=== PATIENT | male | born 1995 | race Caucasian/White ===

== ENCOUNTER 2018-09-28 00:16 | Inpatient (IN) | payer MEDICAID, OTHER ==
[2018-09-28] MEDS ORDERED: ZIPRASIDONE 20 MG VIAL IM PRN (15:12)
[2018-09-28] MEDS ORDERED: MAGNESIUM HYDROXIDE 2,400 MG/10 ML CUP PO PRN (15:12)
[2018-09-28] MEDS ORDERED: MAG HYDROX/AL HYDROX/SIMETH 30 ML CUP PO PRN (15:12)
[2018-09-28] MEDS ORDERED: LORazepam 1 MG TAB PO PRN (15:12)
[2018-09-28] MEDS ORDERED: ACETAMINOPHEN TAB 325 MG TAB PO PRN (15:12)
[2018-09-28] MEDS: diphenhydrAMINE 50 MG CAP PO SCH ×2 (16:00→21:32)
[2018-09-28] MEDS: HALOPERIDOL 5 MG TAB PO SCH ×2 (16:01→21:32)
--- NOTE | 2018-09-28 16:14 | P.MDCNMH ---
History of Present Illness H&P Date: 09/28/18 Chief Complaint: Medical management 23-year-old male with PMH of schizophrenia presents to the ED being brought in by [employer] officer. Patient was recently discharged from [facility] on 09/25/2018. Patient currently has no complaints. Patient requesting when he can be discharged. Patient denies any headaches, lower extremity edema, nausea, vomiting, fever, cough, chest pain, shortness of breath, palpitations, changes in urination or bowel habits. No changes in appetite or weight. He denies numbness, weakness of tingling of the extremities. Review of Systems All systems: negative Past Medical History Past Medical History: No Reported History History of Any Multi-Drug Resistant Organisms: None Reported Past Surgical History: No Surgical Hx Reported Smoking Status: Current every day smoker Medications and Allergies Home Medications Medication Instructions Recorded Confirmed Type Haloperidol Decanoate [Haldol D] 150 mg IM Q21D 09/28/18 09/28/18 History Haloperidol [Haldol] 10 mg PO TID 09/28/18 09/28/18 History OLANZapine [ZyPREXA] 20 mg PO HS 09/28/18 09/28/18 History diphenhydrAMINE [Benadryl] 50 mg PO TID 09/28/18 09/28/18 History Allergies Allergy/AdvReac Type Severity Reaction Status Date / Time peanut Allergy Unknown Verified 09/28/18 13:39 Physical Exam Vitals: Vital Signs Temp Pulse Pulse Resp BP BP Pulse Ox 09/28/18 15:21 97.4 F L 100 20 119/86 09/28/18 14:00 97.9 F 82 18 124/72 98 09/28/18 00:26 97.9 F 89 18 129/83 100 Intake and Output 09/28/18 09/28/18 09/28/18 06:59 14:59 22:59 Other: Weight 56.699 kg General: [non toxic], [no distress], [appears at stated age] Derm: [warm], [dry] Head: [atraumatic], [normocephalic], [symmetric] Eyes: [EOMI], [no lid lag], [anicteric sclera] Mouth: [no lip lesion], [mucus membranes moist] Cardiovascular: [S1S2 reg], [tachycardia], [positive DP pulse bilateral] Lungs: [CTA bilateral], [no rhonchi, no rales] , [no accessory muscle use] Abdominal: [soft], [ nontender to palpation], [no guarding], [no appreciable organomegaly] Ext: [no gross muscle atrophy], [no edema], [no contractures] Neuro: [no focal neuro deficits] Psych: [Alert], [oriented], [appropriate affect] Cranial Nerve Examination - Cranial Nerves Cranial Nerve II- Optic: Intact Cranial Nerve III- Oculomotor: Intact Cranial Nerve IV- Trochlear: Intact Cranial Nerve V- Trigeminal: Intact Cranial Nerve - Abducens: Intact Cranial Nerve VII- Facial: Intact Cranial Nerve VIII- Auditory: Intact Cranial Nerve IX- Glossopharyngeal: Intact Cranial Nerve X- Vagus: Intact Cranial Nerve XI- Accessory: Intact Cranial Nerve XII- Hypoglossal: Intact Assessment and Plan Assessment: Assessment and Plan 1. Tachycardia 2. Schizophrenia 1. Heart rate around 100. Unknown etiology. Will follow EKG results. Follow CBC and BMP results. 2. Management as per psychiatry. Follow TSH results. Thank you for the consult. Please call with any additional questions.
[2018-09-28] MEDS: OLANZapine 10 MG TAB PO SCH (21:31)
[2018-09-29] MEDS: HALOPERIDOL 5 MG TAB PO SCH ×3 (09:29→20:31)
[2018-09-29] MEDS: diphenhydrAMINE 50 MG CAP PO SCH ×3 (09:33→20:31)
--- NOTE | 2018-09-29 16:43 | P.HP ---
Psychiatric H&P - . H&P Date: 09/29/18 History & Physical: Allergies Allergy/AdvReac Type Severity Reaction Status Date / Time peanut Allergy Unknown Verified 09/28/18 13:39 Vital Signs Temp 97.6 F 09/29/18 06:15 Pulse 84 09/29/18 06:15 Resp 12 09/29/18 06:15 BP 118/59 09/29/18 06:15 Pulse Ox 98 09/28/18 14:00 Intake & Output 09/28/18 09/29/18 09/29/18 18:59 06:59 18:59 Weight 56.699 kg 09/29/18 16:38 Chief Complaint : Worsening agitation and aggressive behavior HPI: Mr. Vince uriarte is 23 yo single male with h/o Mood Disorder and psychoses admitted here secondary to worsening behaviors, Reportedly he had a fights with his mother and he was verbally and physically aggressive. Reportedly he has been off his medications for quite some time. Past Psych Hx: Schizophrenia, developmentally delayed Family Hx : Unknown Social Hx : Lives with his biological mother and sister. Reports smoking cigarets a pack a a day. MSE : Alert, awake, interactive. Poor eye contact. Speech few words. Mood dysphoric and anxious. Has no auditory and no visual hallucinations. Has no suicidal ideation. Insight and judgment impaired. A/P : Schizoaffective Disorder, depressed type Will resume and adjust medications accordingly
[2018-09-29] MEDS: OLANZapine 10 MG TAB PO SCH (20:31)
[2018-09-30] MEDS: diphenhydrAMINE 50 MG CAP PO SCH ×3 (08:12→21:55)
[2018-09-30] MEDS: HALOPERIDOL 5 MG TAB PO SCH ×3 (08:12→21:57)
--- NOTE | 2018-09-30 12:42 | P.PN ---
Subjective Progress Note Date: 09/30/18 Principal diagnosis: Schizoaffective Disorder Found him still anxious and upset. He wants to go home. Did sleep better last night. Behaviorally well controlled. MSE : Alert, awake, interactive. Poor eye contact. Speech few words. Mood dysphoric and anxious. Has no auditory and no visual hallucinations. Has no suicidal ideation. Insight and judgment impaired. A/P : Schizoaffective Disorder, depressed type Will adjust medications accordingly Objective - Vital Signs Vital signs: Vital Signs Temp 97.7 F 09/30/18 06:33 Pulse 83 09/30/18 06:33 Resp 16 09/30/18 06:33 BP 116/70 09/30/18 06:33 Pulse Ox 98 09/28/18 14:00 Intake & Output 09/29/18 09/30/18 09/30/18 18:59 06:59 18:59 Weight 56.699 kg
[2018-09-30] MEDS: OLANZapine 10 MG TAB PO SCH (21:55)
[2018-10-01] MEDS: HALOPERIDOL 5 MG TAB PO SCH ×3 (07:38→21:35)
[2018-10-01] MEDS: diphenhydrAMINE 50 MG CAP PO SCH ×3 (07:39→21:35)
[2018-10-01 09:35] LABS: Basophils % (A) 1 %; Eosinophils # (A) 0.2 k/uL (0-0.7); Eosinophils % (A) 4 %; HCT 42.6 % (39.0-53.0); HGB 14.4 gm/dL (13.0-17.5); Lymphocytes % (A) 19 %; MCH 30.9 pg (25.0-35.0); MCHC 33.8 g/dL (31.0-37.0); MCV 91.4 fL (80.0-100.0); Mean Platelet Volume 7.1; Monocytes # (A) 0.3 k/uL (0-1.0); Monocytes % (A) 6 %; Neutrophils # (A) 3.7 k/uL (1.3-7.7); Neutrophils % (A) 70 %; Platelet Count 214 k/uL (150-450); RBC 4.66 m/uL (4.30-5.90); WBC 5.3 k/uL (3.8-10.6)
[2018-10-01 09:53] LABS: ALT 87 U/L (21-72); AST 39 U/L (17-59); Albumin 4.5 g/dL (3.5-5.0); Alkaline Phosphatase 85 U/L (38-126); Anion Gap 11 mmol/L; Blood Urea Nitrogen 20 mg/dL (9-20); Calcium 9.8 mg/dL (8.4-10.2); Carbon Dioxide 23 mmol/L (22-30); Chloride 108 mmol/L (98-107); Cholesterol 152 mg/dL (<200); Glucose 85 mg/dL (74-99); HDL Cholesterol 37 mg/dL (40-60); LDL Cholesterol,Calculated 79 mg/dL (0-99); Potassium 4.8 mmol/L (3.5-5.1); Sodium 142 mmol/L (137-145); Total Bilirubin 0.4 mg/dL (0.2-1.3); Total Protein 7.8 g/dL (6.3-8.2); Triglycerides 181 mg/dL (<150)
--- NOTE | 2018-10-01 12:33 | P.PN ---
Subjective Progress Note Date: 10/01/18 Principal diagnosis: Schizoaffective Disorder, depressed type 10/01/2018: Vince was seen at bedside and he usually was awoken. He states he has troubles with medications because gives some ALLERGIES. He does not specifically say what adverse consequences of using Prolixin. He is taking his medications as indicated. Objective - Vital Signs Vital signs: Vital Signs Temp 97.7 F 09/30/18 06:33 Pulse 83 09/30/18 06:33 Resp 16 09/30/18 06:33 BP 116/70 09/30/18 06:33 Pulse Ox 98 09/28/18 14:00 Intake & Output 09/30/18 10/01/18 10/01/18 18:59 06:59 18:59 Weight 60.7 kg - Labs CBC & Chem 7: 10/01/18 09:22 10/01/18 09:22 Labs: Abnormal Lab Results - Last 24 Hours (Table) 10/01/18 Range/Units 09:22 Chloride 108 H (98-107) mmol/L ALT 87 H (21-72) U/L Triglycerides 181 H (<150) mg/dL HDL Cholesterol 37 L (40-60) mg/dL Assessment and Plan Assessment: Mental Status Examination - General Appearance: [disheveled, bizarre, appears stated age Speech/Language: [ slow, rambled, soft] Attitude/Behavior: [ guarded, withdrawn, indifferent] Mood: [euthymic,anxious, irritable, angry, Affect: [ lively, incongruent, labile, Orientation: [Not time time, person, place situation] Thought Content: [wnl Risk Factors: [Denies suicidal (ideations, plan), and/or Homicidal (ideations, plan), other] Perception: [wnl, denies hallucinations (auditory, visual, tactile), other] Thought Processes: [ concrete Concentration/Attention Span: [impaired] [Per observation and interview with the patient] Recent Memory: [ impaired] [0out of 3 in 3 minutes] Remote Memory: [wnl] [past events, as related history] Intelligence: [below average] [based on history, based on vocabulary, syntax, grammar, and content] Judgement: [ fair [per patient's behavior/history of present illness] Insight: [ fair] [understanding severity of illness/history of present illness] Psychiatric impression: Schizoaffective disorder bipolar type Plan: Discontinue Zyprexa at nighttime continue Haldol 10 mg 3 times a day plus injection of Haldol decanoate on 10/12/2018 150 mg as planned. Will add a mood stabilizer Depakote 250 mg at bedtime to treat his mood instability. (1) Schizoaffective disorder, bipolar type Current Visit: Yes Status: Acute Code(s): F25.0 - SCHIZOAFFECTIVE DISORDER, BIPOLAR TYPE SNOMED Code(s): 64147818 Time with Patient: Less than 30
[2018-10-01 20:33] LABS: Hemoglobin A1C 4.6 % (4.0-6.0)
[2018-10-01] MEDS: DIVALPROEX ER 250 MG TAB.ER.24H PO SCH (21:35)
[2018-10-02] MEDS: diphenhydrAMINE 50 MG CAP PO SCH ×3 (08:55→20:37)
[2018-10-02] MEDS: HALOPERIDOL 5 MG TAB PO SCH ×3 (08:55→20:37)
[2018-10-02] MEDS: DIVALPROEX ER 250 MG TAB.ER.24H PO SCH (20:37)
[2018-10-03] MEDS: HALOPERIDOL 5 MG TAB PO SCH ×3 (09:00→20:02)
[2018-10-03] MEDS: diphenhydrAMINE 50 MG CAP PO SCH ×3 (09:01→20:03)
--- NOTE | 2018-10-03 13:04 | P.PN ---
Subjective Progress Note Date: 10/03/18 Principal diagnosis: Schizoaffective Disorder, depressed type 10/01/2018: Vince was seen at bedside and he usually was awoken. He states he has troubles with medications because gives some ALLERGIES. He does not specifically say what adverse consequences of using Prolixin. He is taking his medications as indicated. 10/03/2018: Vince seen walking in the hallway and explained to him his medications as walks back to my office. He is taking his medications as indicated with a great deal of encouragement. He still has odd behavior and minimally interacts in group. Objective - Vital Signs Vital signs: Vital Signs Temp 98.0 F 10/03/18 06:52 Pulse 97 10/03/18 06:52 Resp 16 10/03/18 06:52 BP 118/71 10/03/18 06:52 Pulse Ox 70 L 10/03/18 06:52 - Labs CBC & Chem 7: 10/01/18 09:22 10/01/18 09:22 Assessment and Plan Assessment: Mental Status Examination - General Appearance: [disheveled, bizarre, appears stated age Speech/Language: [ slow, rambled, soft] Attitude/Behavior: [ guarded, withdrawn, indifferent] Mood: [euthymic,anxious, irritable, angry, Affect: [ lively, incongruent, labile, Orientation: [Not time time, person, place situation] Thought Content: [wnl Risk Factors: [Denies suicidal (ideations, plan), and/or Homicidal (ideations, plan), other] Perception: [wnl, denies hallucinations (auditory, visual, tactile), other] Thought Processes: [ concrete Concentration/Attention Span: [impaired] [Per observation and interview with the patient] Recent Memory: [ impaired] [0out of 3 in 3 minutes] Remote Memory: [wnl] [past events, as related history] Intelligence: [below average] [based on history, based on vocabulary, syntax, grammar, and content] Judgement: [ fair [per patient's behavior/history of present illness] Insight: [ fair] [understanding severity of illness/history of present illness] Psychiatric impression: Schizoaffective disorder bipolar type Plan: Discontinue Zyprexa at nighttime continue Haldol 10 mg 3 times a day plus injection of Haldol decanoate on 10/12/2018 150 mg as planned. Will add a mood stabilizer Depakote 250 mg at bedtime to treat his mood instability. 10/03/2018: Will evaluate Depakote blood level. Discontinue Zyprexa at bedtime. Continue the Haldol 10 mg 3 times a day. Consideration of the increase of haloperidol his Haldol decanoate will be given at the time of discharge. (1) Schizoaffective disorder, bipolar type Current Visit: Yes Status: Acute Code(s): F25.0 - SCHIZOAFFECTIVE DISORDER, BIPOLAR TYPE SNOMED Code(s): 37362488 Time with Patient: Less than 30
--- NOTE | 2018-10-03 13:05 | P.PN ---
Subjective Progress Note Date: 10/02/18 Principal diagnosis: Schizoaffective Disorder, depressed type 10/01/2018: Vince was seen at bedside and he usually was awoken. He states he has troubles with medications because gives some ALLERGIES. He does not specifically say what adverse consequences of using Prolixin. He is taking his medications as indicated. 10/02/2018: Discussed in detail with Vince regarding his hearing with [facility] and his discharge plans thereafter. He was encouraged to take his medications daily otherwise he will not leave the unit. 10/03/2018: Vince seen walking in the hallway and explained to him his medications as walks back to my office. He is taking his medications as indicated with a great deal of encouragement. He still has odd behavior and minimally interacts in group. Objective - Vital Signs Vital signs: Vital Signs Temp 98.0 F 10/03/18 06:52 Pulse 97 10/03/18 06:52 Resp 16 10/03/18 06:52 BP 118/71 10/03/18 06:52 Pulse Ox 70 L 10/03/18 06:52 - Labs CBC & Chem 7: 10/01/18 09:22 10/01/18 09:22 Assessment and Plan Assessment: Mental Status Examination - General Appearance: [disheveled, bizarre, appears stated age Speech/Language: [ slow, rambled, soft] Attitude/Behavior: [ guarded, withdrawn, indifferent] Mood: [euthymic,anxious, irritable, angry, Affect: [ lively, incongruent, labile, Orientation: [Not time time, person, place situation] Thought Content: [wnl Risk Factors: [Denies suicidal (ideations, plan), and/or Homicidal (ideations, plan), other] Perception: [wnl, denies hallucinations (auditory, visual, tactile), other] Thought Processes: [ concrete Concentration/Attention Span: [impaired] [Per observation and interview with the patient] Recent Memory: [ impaired] [0out of 3 in 3 minutes] Remote Memory: [wnl] [past events, as related history] Intelligence: [below average] [based on history, based on vocabulary, syntax, grammar, and content] Judgement: [ fair [per patient's behavior/history of present illness] Insight: [ fair] [understanding severity of illness/history of present illness] Psychiatric impression: Schizoaffective disorder bipolar type Plan: Discontinue Zyprexa at nighttime continue Haldol 10 mg 3 times a day plus injection of Haldol decanoate on 10/12/2018 150 mg as planned. Will add a mood stabilizer Depakote 250 mg at bedtime to treat his mood instability. 10/02/2018: Continued on behavior and isolation. Will check 15 minutes on a safety and encourage him to be in [facility] therapeutic environment. 10/03/2018: Will evaluate Depakote blood level. Discontinue Zyprexa at bedtime. Continue the Haldol 10 mg 3 times a day. Consideration of the increase of haloperidol his Haldol decanoate will be given at the time of discharge. (1) Schizoaffective disorder, bipolar type Current Visit: Yes Status: Acute Code(s): F25.0 - SCHIZOAFFECTIVE DISORDER, BIPOLAR TYPE SNOMED Code(s): 44283166 Time with Patient: Less than 30
[2018-10-03] MEDS: DIVALPROEX ER 250 MG TAB.ER.24H PO SCH (20:03)
[2018-10-04] MEDS: diphenhydrAMINE 50 MG CAP PO SCH ×3 (08:16→21:21)
[2018-10-04] MEDS: HALOPERIDOL 5 MG TAB PO SCH ×3 (08:16→21:21)
--- NOTE | 2018-10-04 13:41 | P.PN ---
Subjective Progress Note Date: 10/04/18 Principal diagnosis: Schizoaffective Disorder, depressed type 10/01/2018: Vicne was seen at bedside and he usually was awoken. He states he has troubles with medications because gives some ALLERGIES. He does not specifically say what adverse consequences of using Prolixin. He is taking his medications as indicated. 10/02/2018: Discussed in detail with Vince regarding his hearing with [facility] and his discharge plans thereafter. He was encouraged to take his medications daily otherwise he will not leave the unit. 10/03/2018: Vince seen walking in the hallway and explained to him his medications as walks back to my office. He is taking his medications as indicated with a great deal of encouragement. He still has odd behavior and minimally interacts in group. 10/04/2018: Vince was seen by [facility] regarding his court hearing tomorrow. He tends to be on isolative at times, cryptic presentation and odd affect. He does not like taking his medications however encouraged him to take them and redirect his annoyance of taking the medicine. Objective - Vital Signs Vital signs: Vital Signs Temp 98.8 F 10/04/18 06:29 Pulse 97 10/04/18 06:29 Resp 15 10/04/18 06:29 BP 120/71 10/04/18 06:29 Pulse Ox 70 L 10/03/18 06:52 - Labs CBC & Chem 7: 10/01/18 09:22 10/01/18 09:22 Assessment and Plan Assessment: Mental Status Examination - General Appearance: [disheveled, bizarre, appears stated age Speech/Language: [ slow, rambled, soft] Attitude/Behavior: [ guarded, withdrawn, indifferent] Mood: [euthymic,anxious, irritable, angry, Affect: [ lively, incongruent, labile, Orientation: [Not time time, person, place situation] Thought Content: [wnl Risk Factors: [Denies suicidal (ideations, plan), and/or Homicidal (ideations, plan), other] Perception: [wnl, denies hallucinations (auditory, visual, tactile), other] Thought Processes: [ concrete Concentration/Attention Span: [impaired] [Per observation and interview with the patient] Recent Memory: [ impaired] [0out of 3 in 3 minutes] Remote Memory: [wnl] [past events, as related history] Intelligence: [below average] [based on history, based on vocabulary, syntax, grammar, and content] Judgement: [ fair [per patient's behavior/history of present illness] Insight: [ fair] [understanding severity of illness/history of present illness] Psychiatric impression: Schizoaffective disorder bipolar type Plan: Discontinue Zyprexa at nighttime continue Haldol 10 mg 3 times a day plus injection of Haldol decanoate on 10/12/2018 150 mg as planned. Will add a mood stabilizer Depakote 250 mg at bedtime to treat his mood instability. 10/02/2018: Continued on behavior and isolation. Will check 15 minutes on a safety and encourage him to be in [facility] therapeutic environment. 10/03/2018: Will evaluate Depakote blood level. Discontinue Zyprexa at bedtime. Continue the Haldol 10 mg 3 times a day. Consideration of the increase of haloperidol his Haldol decanoate will be given at the time of discharge. 10/04/2018: Depakote level came back as low and will increase Depakote to 750 mg extended release at bedtime. He is going to court tomorrow for probate hearing on continuation of medication. Continues haloperidol as written in the chart. He is still on 15 minute checks with in [facility] environment where he has minimal participation due to his odd affect and no social skills which probably puts him in the spectrum of autistic in nature. (1) Schizoaffective disorder, bipolar type Current Visit: Yes Status: Acute Code(s): F25.0 - SCHIZOAFFECTIVE DISORDER, BIPOLAR TYPE SNOMED Code(s): 15198586 Time with Patient: Less than 30
[2018-10-04] MEDS ORDERED: DIVALPROEX ER 250 MG TAB.ER.24H PO SCH (21:00)
[2018-10-05 06:44] VITALS: BP 108/65; PULSE 100; RESP 20; TEMP 98.1
[2018-10-05] MEDS: diphenhydrAMINE 50 MG CAP PO SCH (08:09)
[2018-10-05] MEDS: HALOPERIDOL 5 MG TAB PO SCH (08:10)
[2018-10-05 08:35] VITALS: BMI 19.2
[2018-10-05] MEDS ORDERED: HALOPERIDOL DECANOATE 100 MG/ML 1 ML VIAL IM STA (09:52)
--- NOTE | 2018-10-05 10:00 | P.DS ---
Providers Date of admission: 09/28/18 14:32 Expected date of discharge: 10/05/18 Attending physician: Richard Garcia DO Consults: 09/28/18 15:12 Consult Physician Routine Consulting Provider: Marlena Jacobs Consult Reason/Comments: history and physical Do you want consulting provider notified?: Yes Primary care physician: Stated None - Discharge Diagnosis(es) (1) Schizoaffective disorder, bipolar type 23-year-old male with PMH of schizophrenia presents to the ED being brought in by [facility] foreign service officer. Patient was recently discharged from [place] on 09/25/2018. Patient currently has no complaints. Patient requesting when he can be discharged. Patient denies any headaches, lower extremity edema, nausea, vomiting, fever, cough, chest pain, shortness of breath, palpitations, changes in urination or bowel habits. No changes in appetite or weight. He denies numbness, weakness of tingling of the extremities. Past Medical History Past Medical History: No Reported History History of Any Multi-Drug Resistant Organisms: None Reported Past Surgical History: No Surgical Hx Reported Smoking Status: Current every day smoker Medications and Allergies Home Medications Medication Instructions Recorded Confirmed Type Haloperidol Decanoate [Haldol D] 150 mg IM Q21D 09/28/18 09/28/18 History Haloperidol [Haldol] 10 mg PO TID 09/28/18 09/28/18 History OLANZapine [ZyPREXA] 20 mg PO HS 09/28/18 09/28/18 History diphenhydrAMINE [Benadryl] 50 mg PO TID 09/28/18 09/28/18 History Allergies Allergy/AdvReac Type Severity Reaction Status Date / Time peanut Allergy Unknown Verified 09/28/18 13:39 Current Visit: Yes Status: Acute Priority: Low Hospital Course: Plan: Discontinue Zyprexa at nighttime continue Haldol 10 mg 3 times a day plus injection of Haldol decanoate on 10/12/2018 150 mg as planned. Will add a mood stabilizer Depakote 250 mg at bedtime to treat his mood instability. 10/02/2018: Continued on behavior and isolation. Will check 15 minutes on a safety and encourage him to be in [facility] therapeutic environment. 10/03/2018: Will evaluate Depakote blood level. Discontinue Zyprexa at bedtime. Continue the Haldol 10 mg 3 times a day. Consideration of the increase of haloperidol his Haldol decanoate will be given at the time of discharge. 10/04/2018: Depakote level came back as low and will increase Depakote to 750 mg extended release at bedtime. He is going to court tomorrow for probate hearing on continuation of medication. Continues haloperidol as written in the chart. He is still on 15 minute checks with in [facility] therapeutic environment where he has minimal participation due to his odd affect and no social skills which probably puts him in the spectrum of autistic in nature. Mental status examination time of discharge: The patient presents alert, pleasant, and cooperative. There calmly seated without any agitated behavior. [He] reports that [his] mood is good. Affect is congruent and euthymic. [His] deny having any suicidal or homicidal ideation intent or plan. [He] denies any auditory or visual hallucinations. There is no evidence of any delusional thought content. [His] thought process is linear and goal-directed. [His] speech is fluent and nonpressured. [His] memory and concentration is grossly intact for the purposes of this session. Medications at discharge: He was given Haldol decanoate 200 mg IM today on 10/05 Discharge Medication List Divalproex ER [Depakote ER] 750 mg PO 2100 30 Days #90 tab.er.24h 10/05/18 [Rx] Haloperidol Decanoate [Haldol D] 150 mg IM Q21D 21 Days #2 vial 10/05/18 [Rx] Patient Condition at Discharge: Stable Plan - Discharge Summary Discharge Rx Participant: Yes New Discharge Prescriptions: New Divalproex ER [Depakote ER] 750 mg PO 2100 30 Days #90 tab.er.24h Continue Haloperidol Decanoate [Haldol D] 150 mg IM Q21D 21 Days #2 vial Discontinued diphenhydrAMINE [Benadryl] 50 mg PO TID Haloperidol [Haldol] 10 mg PO TID OLANZapine [ZyPREXA] 20 mg PO HS Discharge Medication List Divalproex ER [Depakote ER] 750 mg PO 2100 30 Days #90 tab.er.24h 10/05/18 [Rx] Haloperidol Decanoate [Haldol D] 150 mg IM Q21D 21 Days #2 vial 10/05/18 [Rx] Follow up Appointment(s)/Referral(s): [facility] [Outside] - 10/11/18 1:00 pm ([facility] also has 3:00 pm appointment to pickup med box and meet with ACT team.) None,Stated [Primary Care Provider] - 1 Week Patient Instructions/Handouts: Schizoaffective Disorder (DC) Activity/Diet/Wound Care/Special Instructions: Activity and Diet as tolerated. Avoid the use of street drugs and alcohol. Take all medications as prescribed, when you are in need of refills contact your medical doctor or psychiatrist. Please go to all scheduled outpatient appointments for aftercare treatment. If symptoms return or worsen you can call the crisis line @ and/or return to the nearest emergency room for evaluation. Discharge Disposition: HOME SELF-CARE
[2018-10-12] MEDS ORDERED: HALOPERIDOL DECANOATE 100 MG/ML 1 ML VIAL IM SCH (09:00)
== END 2018-10-05 14:08 | disposition home or self-care (01) | DRG 885 ==
LOC: EC 00:16 → 3MHU 14:32
PROVIDERS: ADMIT Psychiatry & Neurology Psychiatry; ATTEND Psychiatry & Neurology Psychiatry
DX: F25.0 Schizoaffective disorder, bipolar type (principal); F84.0 Autistic disorder; F89 Unspecified disorder of psychological development; F17.210 Nicotine dependence, cigarettes, uncomplicated; Z71.6 Tobacco abuse counseling; Z79.899 Other long term (current) drug therapy; Z91.010 Allergy to peanuts
CPT/HCPCS: 80053; 80061; 80164; 80165; 82075; 83036; 84443; 85025

== ENCOUNTER 2018-11-13 14:44 | Emergency (ER) | payer OTHER ==
[2018-11-13 14:49] VITALS: BP 92/58; PULSE 65; RESP 18; TEMP 97.5
[2018-11-13] MEDS ORDERED: PROPARACAINE 0.5% OPHTH DROPS 15 ML BTL RIGHT EYE STA (14:50)
[2018-11-13] MEDS ORDERED: CEPHALEXIN 500MG STARTER PACK 4 CAP BTL PO STA (15:12)
--- NOTE | 2018-11-13 15:13 | ED ---
General Adult HPI - General Chief complaint: Eye Problems Stated complaint: Swollen eye Time Seen by Provider: 11/13/18 14:50 Source: patient, family, RN notes reviewed Mode of arrival: ambulatory Limitations: no limitations - History of Present Illness Initial comments: 23-year-old male presents to the emergency department for a chief complaint of right eye swelling times one day. Patient states he woke up today and his right eyelid was swollen. Patient denies any injuries. Patient denies any pain. He denies fevers or chills. He denies any pain with movement of the eye. He denies any pain of the eye itself. Denies any shortness of breath, swelling of the lips tongue or throat. No other complaints at this time. Denies any visual changes. No headaches.Patient has no other complaints at this time including shortness of breath, chest pain, abdominal pain, nausea or vomiting, headache, or visual changes. - Related Data Home Medications Medication Instructions Recorded Confirmed Benztropine Mesylate 1 mg PO BID 11/13/18 11/13/18 Divalproex ER [Depakote ER] 750 mg PO HS@2100 11/13/18 11/13/18 Haloperidol Decanoate [Haldol D] 100 mg IM Q21D 11/13/18 11/13/18 Previous Rx's Medication Instructions Recorded Cephalexin [Keflex] 500 mg PO Q6HR 7 Days cap 11/13/18 Allergies Allergy/AdvReac Type Severity Reaction Status Date / Time peanut Allergy Unknown Verified 11/13/18 14:56 Prolixen AdvReac Unknown Unknown Uncoded 10/01/18 09:13 Review of Systems ROS Statement: Those systems with pertinent positive or pertinent negative responses have been documented in the HPI. ROS Other: All systems not noted in ROS Statement are negative. Past Medical History Past Medical History: No Reported History History of Any Multi-Drug Resistant Organisms: None Reported Past Surgical History: No Surgical Hx Reported Past Anesthesia/Blood Transfusion Reactions: No Reported Reaction Past Psychological History: Schizophrenia Smoking Status: Current every day smoker Past Alcohol Use History: None Reported Past Drug Use History: None Reported General Exam Limitations: no limitations General appearance: alert, in no apparent distress Head exam: Present: atraumatic, normocephalic, normal inspection Eye exam: Present: PERRL, EOMI, periorbital swelling (of the right upper eyelid, soft, erythematous,). Absent: scleral icterus, conjunctival injection (No erythema noted of the conjunctiva), periorbital tenderness (no tenderness of the right periorbital area including the swelling) Expanded Eyelids: Normal Inspection: Left, Erythema: Right, Swelling: Right Pupils: Regular, Round: Bilateral Sclera/Conjunctival: Normal Inspection: Bilateral Anterior chamber: Normal Inspection: Bilateral ENT exam: Present: normal exam, normal oropharynx, mucous membranes moist, TM's normal bilaterally, normal external ear exam Neck exam: Present: normal inspection, full ROM. Absent: tenderness, meningismus, lymphadenopathy Respiratory exam: Present: normal lung sounds bilaterally. Absent: respiratory distress, wheezes, rales, rhonchi, stridor Cardiovascular Exam: Present: regular rate, normal rhythm, normal heart sounds. Absent: systolic murmur, diastolic murmur, rubs, gallop, clicks Neurological exam: Present: alert, oriented X3, CN II-XII intact Psychiatric exam: Present: normal affect, normal mood Course Vital Signs 11/13/18 14:45 Temperature 97.5 F L Pulse Rate 65 Respiratory 18 Rate Blood Pressure 92/58 O2 Sat by Pulse 99 Oximetry Medical Decision Making - Medical Decision Making 23-year-old male presents to the emergency department for chief complaint of right eye swelling. This started this morning. There is periorbital swelling noted to the right upper eyelid. No stye noted. The swelling is soft in nature and erythematous. It is not warm to touch. It does not appear infectious at this time. No pain with extraocular motions. No conjunctival injection or irritation. The eye was stained with fluorescein stain and visualized with the Wood's lamp without seeing any uptake. Exam is unremarkable other than localized edema of the right eyelid. She will be given Keflex in case of early cellulitic changes. No evidence for an orbital cellulitis. Patient will follow up with primary care at his scheduled appointment tomorrow. He will return here feels any worsening symptoms. He was also given referral to ophthalmology if needed. Patient's visual acuity is 20/50 bilaterally, states he does not wear glasses, denying visual changes. This is patient's baseline. Disposition Clinical Impression: Periorbital edema of right eye Disposition: HOME SELF-CARE Condition: Good Instructions (If sedation given, give patient instructions): Periorbital Cellulitis in Adults (ED) Additional Instructions: Please take antibiotic as directed. Please follow-up at your appointment tomorrow. Please return here to the emergency department if you have any worsening symptoms or pain with movement of the eye. Prescriptions: Cephalexin [Keflex] 500 mg PO Q6HR 7 Days cap Is patient prescribed a controlled substance at d/c from ED?: No Referrals: Kailey Devi MD [REFERRING] - 1-2 days Enoch Mata MD [STAFF PHYSICIAN] - 1-2 days Time of Disposition: 15:10
== END 2018-11-13 15:26 | disposition home or self-care (01) ==
LOC: EC 14:44
DX: H05.221 Edema of right orbit (principal); F17.200 Nicotine dependence, unspecified, uncomplicated; F20.9 Schizophrenia, unspecified; Z79.899 Other long term (current) drug therapy; Z88.8 Allergy status to other drugs, medicaments and biological substances; Z91.010 Allergy to peanuts
CPT/HCPCS: 99283